=== PATIENT | male | born 1995 | race Caucasian/White ===

== ENCOUNTER 2020-05-09 10:58 | Emergency (ER) | payer OTHER ==
[~2020-05-09] VITALS: Ht 180.3 cm; Wt 66.0 kg
[2020-05-09 11:06] VITALS: BP 126/83
== END 2020-05-09 11:39 | disposition home or self-care (01) ==
LOC: ED 11:15
DX: H60.11 Cellulitis of right external ear (principal); L03.114 Cellulitis of left upper limb; L03.113 Cellulitis of right upper limb; F17.210 Nicotine dependence, cigarettes, uncomplicated
CPT/HCPCS: 99283

== ENCOUNTER 2020-11-24 16:00 | Inpatient (IN) | payer MEDICAID ==
[~2020-11-24] VITALS: Ht 182.9 cm; Wt 71.9 kg
[2020-11-24] MEDS ORDERED: SODIUM CHLORIDE FLUSH 10ML SYR IVF ONE (18:00)
[2020-11-24] MEDS ORDERED: CEFTRIAXONE 1,000 MG in DEXTROSE 5% 50 ML IVPB ONE (18:00)
[2020-11-24] MEDS ORDERED: VANCOMYCIN PER PHARMACY MC ONE (18:00)
[2020-11-24] MEDS ORDERED: SODIUM CHLORIDE 0.9% 1,000ML IVBOLUS ONE (18:00)
[2020-11-24] MEDS ORDERED: VANCOMYCIN 1,700 MG in SODIUM CHLORIDE 0.9% 250 ML IV ONE (18:30)
[2020-11-24 18:41] LABS: MEAN CORPUSCULAR HGB CONC 33.3 g/dL (33.2-36.2); MEAN PLATELET VOLUME 7.1 fL (7.4-10.4); PLATELET COUNT 547 x10^3/uL (130-400); RED BLOOD COUNT 4.29 x10^6/uL (4.38-5.82); RED CELL DISTRIBUTION WIDTH 13.1 % (9.4-14.8)
[2020-11-24 18:54] LABS: ALBUMIN 3.2 g/dL (3.4-5.0); ANION GAP 5 mmol/L (5-15); CALCIUM 9.2 mg/dL (8.5-10.1); CHLORIDE 106 mmol/L (98-107); CREATININE 0.93 mg/dL (0.7-1.3)
--- NOTE | 2020-11-24 19:05 | NUR ---
GAVE PT SNACKS AND DRINKS.
[2020-11-24 19:11] LABS: MD YES
[2020-11-24 19:12] LABS: BAND#(MANUAL) 0.17 x10^3/uL; BANDS%(MANUAL) 1 % (0-7); LYMPH#(MANUAL) 2.41 x10^3/uL (1-3.4); LYMPHS% (MANUAL) 14 % (22-44); MONOS#(MANUAL) 1.03 x10^3/uL (0.3-2.7); MONOS% (MANUAL) 6 % (2-9); REACTIVE LYMPHS # (MANUAL) 0.17 x10^3/uL (0-0); REACTIVE LYMPHS % (MANUAL) 1 % (0-0); SEG#(MANUAL) 13.42 x10^3/uL (1.8-6.8); SEGS% (MANUAL) 78 % (42-75)
[2020-11-24 19:13] LABS: <PLATELET ESTIMATE> INCREASED; <PLT MORPHOLOGY> NORMAL PLT MORPH; <RBC MORPHOLOGY> NORMAL; PMNS WITH VACUOLES 1+; TOXIC GRAN 1+
--- NOTE | 2020-11-24 20:32 | NUR ---
PT REQUESTED MORE SNAKCS AND DRINKS. EATING FOOD CURRENTLY. VSS.
--- NOTE | 2020-11-24 20:33 | NUR ---
LATE ENTRY. PT CAME INTO ED WITH LESIONS AND ABRASIONS COVERED OVER HIS EXTREMITIES, BACK AND NECK. DID NOT KNOW WHY HE HAD THEM AND DENIES DOING DRUGS IV. STATES HE DOES SMOKE HEROIN. WAS WORRIED ABOUT THE ABRASIONS HE HAD.
--- NOTE | 2020-11-24 21:36 | NUR ---
ASKED PT IF HE WANTED TO MOVE INTO A HOSPITAL BED BUT REFUSED AND SAID HE WILL WAIT UNTIL HE GETS MOVED UPSTAIRS.
--- NOTE | 2020-11-24 21:56 | NUR ---
GAVE REPORT TO BRAYDON SCOTT
--- NOTE | 2020-11-24 21:58 | NUR ---
PT STATES HE DOES NOT TAKE ANY MEDS OR HAS ANY ALLERGIES.
[2020-11-24 22:29] VITALS: BP 113/65
[2020-11-24] MEDS ORDERED: LABETALOL 5MG/ML, 20ML IVPush PRN (22:30)
[2020-11-24] MEDS ORDERED: VANCOMYCIN PER PHARMACY MC PRN (22:30)
[2020-11-24] MEDS ORDERED: ACETAMINOPHEN 325 MG TABLET PO PRN (22:30)
[2020-11-24] MEDS ORDERED: LACTATED RINGERS 1,000 ML IV SCH (22:30)
[2020-11-24] MEDS: ENOXAPARIN 40 MG/0.4 ML SQ SCH (22:55)
[2020-11-24] MEDS ORDERED: PHARMACOKINETIC MONITORING MC PRN (23:00)
[2020-11-25 00:03] VITALS: BP 112/68
[2020-11-25] MEDS ORDERED: NICOTINE 14MG/24 HR PATCH.TD24 TD SCH (04:30)
[2020-11-25] MEDS: VANCOMYCIN 1,400 MG in SODIUM CHLORIDE 0.9% 250 ML IV SCH ×3 (04:59→21:15)
[2020-11-25 05:50] LABS: BASOPHILS % (AUTO) 0 % (0-1); EOSINOPHILS % (AUTO) 1 % (1-7); LYMPHOCYTES % (AUTO) 21 % (22-44); MEAN CORPUSCULAR HEMOGLOBIN 30.5 pg (27.5-34.5); MEAN CORPUSCULAR HGB CONC 33.7 g/dL (33.2-36.2); MEAN PLATELET VOLUME 7.1 fL (7.4-10.4); MONOCYTES % (AUTO) 8 % (2-9); NEUTROPHILS % (AUTO) 71 % (42-75); PLATELET COUNT 493 x10^3/uL (130-400); RED CELL DISTRIBUTION WIDTH 13.3 % (9.4-14.8)
[2020-11-25 05:56] LABS: MD NO
[2020-11-25 06:01] LABS: ALBUMIN 2.7 g/dL (3.4-5.0); ANION GAP 4 mmol/L (5-15); CALCIUM 8.8 mg/dL (8.5-10.1); CHLORIDE 107 mmol/L (98-107)
[2020-11-25 06:05] LABS: CREATININE 0.68 mg/dL (0.7-1.3)
[2020-11-25 06:06] LABS: ALANINE AMINOTRANSFERASE 23 U/L (12-78); ALKALINE PHOSPHATASE 118 U/L (45-117); BILIRUBIN,TOTAL 0.3 mg/dL (0.2-1.0)
[2020-11-25 07:13] VITALS: BP 106/68
[2020-11-25] MEDS: SENNA/DOCUSATE TABLET PO SCH (09:46)
[2020-11-25 12:34] VITALS: BP 116/74
[2020-11-25] MEDS: NICOTINE 21 MG/24 HR PATCH.TD24 TD SCH (16:41)
[2020-11-25] MEDS: MUPIROCIN OINT 2%, 22GM TP SCH (18:19)
[2020-11-25 18:32] VITALS: BP 108/68
[2020-11-25] MEDS ORDERED: CEFTRIAXONE 1,000 MG in DEXTROSE 5% 50 ML IVPB SCH (19:00)
[2020-11-25] MEDS: ENOXAPARIN 40 MG/0.4 ML SQ SCH (23:54)
[2020-11-26 00:17] VITALS: BP 117/72
[2020-11-26] MEDS: MUPIROCIN OINT 2%, 22GM TP SCH ×2 (05:05→17:19)
[2020-11-26] MEDS: VANCOMYCIN 1,400 MG in SODIUM CHLORIDE 0.9% 250 ML IV SCH ×3 (05:05→16:25)
[2020-11-26 05:06] LABS: BASOPHILS % (AUTO) 1 % (0-1); EOSINOPHILS % (AUTO) 2 % (1-7); LYMPHOCYTES % (AUTO) 33 % (22-44); MEAN CORPUSCULAR HEMOGLOBIN 30.2 pg (27.5-34.5); MEAN CORPUSCULAR HGB CONC 33.5 g/dL (33.2-36.2); MEAN PLATELET VOLUME 6.9 fL (7.4-10.4); MONOCYTES % (AUTO) 9 % (2-9); NEUTROPHILS % (AUTO) 55 % (42-75); PLATELET COUNT 466 x10^3/uL (130-400); RED BLOOD COUNT 3.98 x10^6/uL (4.38-5.82); RED CELL DISTRIBUTION WIDTH 13.4 % (9.4-14.8)
[2020-11-26 05:19] LABS: ANION GAP 2 mmol/L (5-15); CALCIUM 8.8 mg/dL (8.5-10.1); CHLORIDE 107 mmol/L (98-107); CREATININE 0.74 mg/dL (0.7-1.3)
[2020-11-26 05:41] LABS: MD NO
[2020-11-26 06:43] VITALS: BP 107/67
[2020-11-26] MEDS: SENNA/DOCUSATE TABLET PO SCH (09:14)
[2020-11-26 14:19] VITALS: BP 112/61
[2020-11-26] MEDS: NICOTINE 21 MG/24 HR PATCH.TD24 TD SCH (16:25)
[2020-11-26 18:59] VITALS: BP 112/71
[2020-11-26] MEDS: ENOXAPARIN 40 MG/0.4 ML SQ SCH (23:48)
[2020-11-27 00:10] VITALS: BP 124/74
[2020-11-27] MEDS: VANCOMYCIN 1,400 MG in SODIUM CHLORIDE 0.9% 250 ML IV SCH ×2 (04:21→16:54)
[2020-11-27] MEDS: MUPIROCIN OINT 2%, 22GM TP SCH ×2 (05:02→18:18)
[2020-11-27 05:14] LABS: HCT (SEDRATE) 38.9 % (39.2-51.8)
[2020-11-27 05:24] LABS: CHLORIDE 104 mmol/L (98-107)
[2020-11-27 05:38] LABS: ANION GAP 2 mmol/L (5-15); CALCIUM 8.7 mg/dL (8.5-10.1); CREATININE 0.73 mg/dL (0.7-1.3)
[2020-11-27 07:02] VITALS: BP 102/65
[2020-11-27] MEDS: SENNA/DOCUSATE TABLET PO SCH (09:43)
[2020-11-27 12:51] VITALS: BP 113/73
[2020-11-27] MEDS: NICOTINE 21 MG/24 HR PATCH.TD24 TD SCH (17:01)
[2020-11-27 20:37] VITALS: BP 114/70
[2020-11-28 00:22] VITALS: BP 133/73
[2020-11-28] MEDS: ENOXAPARIN 40 MG/0.4 ML SQ SCH (00:24)
[2020-11-28] MEDS: VANCOMYCIN 1,400 MG in SODIUM CHLORIDE 0.9% 250 ML IV SCH (04:32)
[2020-11-28 05:18] LABS: BASOPHILS % (AUTO) 1 % (0-1); EOSINOPHILS % (AUTO) 1 % (1-7); LYMPHOCYTES % (AUTO) 25 % (22-44); MEAN CORPUSCULAR HEMOGLOBIN 30.4 pg (27.5-34.5); MEAN CORPUSCULAR HGB CONC 33.5 g/dL (33.2-36.2); MEAN PLATELET VOLUME 7.2 fL (7.4-10.4); MONOCYTES % (AUTO) 7 % (2-9); NEUTROPHILS % (AUTO) 66 % (42-75); PLATELET COUNT 521 x10^3/uL (130-400); RED BLOOD COUNT 4.37 x10^6/uL (4.38-5.82); RED CELL DISTRIBUTION WIDTH 13.3 % (9.4-14.8)
[2020-11-28 05:23] LABS: MD NO
[2020-11-28 05:27] LABS: ANION GAP 5 mmol/L (5-15); CALCIUM 8.8 mg/dL (8.5-10.1); CHLORIDE 107 mmol/L (98-107); CREATININE 0.68 mg/dL (0.7-1.3)
[2020-11-28] MEDS: MUPIROCIN OINT 2%, 22GM TP SCH (06:13)
[2020-11-28 07:21] VITALS: BP 123/69
[2020-11-28] MEDS: SENNA/DOCUSATE TABLET PO SCH (08:29)
[2020-11-28] MEDS ORDERED: MUPI1OIN6 TP (09:33)
[2020-11-28] MEDS ORDERED: CEPH-376 PO (09:33)
== END 2020-11-28 11:12 | disposition home or self-care (01) | DRG 872 ==
LOC: ED 16:30 → EDIP 21:46 → 3N 22:24 → DCLOUNGE 11-28 11:05
PROVIDERS: ADMIT Family Medicine; ATTEND Family Medicine
DX: A40.0 Sepsis due to streptococcus, group A (principal); L03.116 Cellulitis of left lower limb; L03.115 Cellulitis of right lower limb; L03.113 Cellulitis of right upper limb; Z66 Do not resuscitate; F12.10 Cannabis abuse, uncomplicated; F15.10 Other stimulant abuse, uncomplicated; F17.210 Nicotine dependence, cigarettes, uncomplicated; L02.92 Furuncle, unspecified; L02.93 Carbuncle, unspecified; L73.9 Follicular disorder, unspecified; Z56.0 Unemployment, unspecified; Z59.0 Homelessness; Z82.49 Family history of ischemic heart disease and other diseases of the circulatory system
CPT/HCPCS: 36415; 71045; 80048; 80053; 80202; 82040; 83605; 85025; 85651; 86140; 87040; 87070; 87147; 87205; 93005; 96365; 96366; 96367; G0378; J0696; J1650; J3370; J7030; J7050; J7120

== ENCOUNTER 2021-01-03 20:09 | Inpatient (IN) | payer MEDICAID ==
[~2021-01-03] VITALS: Ht 188 cm; Wt 70.0 kg
[~2021-01-03 20:09] MED LIST: CEPH-376 PO; MUPI1OIN6 TP
[2021-01-03 20:59] LABS: BASOPHILS % (AUTO) 1 % (0-1); EOSINOPHILS % (AUTO) 1 % (1-7); LYMPHOCYTES % (AUTO) 18 % (22-44); MEAN CORPUSCULAR HEMOGLOBIN 31.3 pg (27.5-34.5); MEAN CORPUSCULAR HGB CONC 33.9 g/dL (33.2-36.2); MEAN PLATELET VOLUME 7.4 fL (7.4-10.4); MONOCYTES % (AUTO) 7 % (2-9); NEUTROPHILS % (AUTO) 74 % (42-75); PLATELET COUNT 432 x10^3/uL (130-400); RED BLOOD COUNT 4.82 x10^6/uL (4.38-5.82); RED CELL DISTRIBUTION WIDTH 14.6 % (9.4-14.8)
[2021-01-03] MEDS ORDERED: DIPH,PERTUSS(ACELL),TET VAC/PF 0.5 ML IM-VACC ONE (21:00)
[2021-01-03 21:03] LABS: ANION GAP 5 mmol/L (5-15); CHLORIDE 106 mmol/L (98-107)
[2021-01-03 21:05] LABS: MD NO
--- NOTE | 2021-01-03 22:12 | NUR ---
NURSES SUPERVISOR: PT. TO ROOM FROM LOBBY AT THIS TIME.
--- NOTE | 2021-01-03 23:04 | NUR ---
PT WALKED TO ROOM FROM LOBBY WITHOUT DIFFICULTY, PT A/O X4 AND WITH UNLABORED BREATHING. PT HAS C/O RIGHT ARM ABSCESS FOR THE LAST 3 DAYS. PT STATED HE WAS HERE LAST WEEK WITH A STAPH INFECTION"
[2021-01-03] MEDS ORDERED: LIDOCAINE 1%, 10ML INFIL ONE (23:30)
[2021-01-03] MEDS ORDERED: CEFTRIAXONE 1,000 MG in DEXTROSE 5% 50 ML IVPB ONE (23:30)
[2021-01-03] MEDS ORDERED: SODIUM CHLORIDE 0.9% 1,000ML IVBOLUS ONE (23:30)
[2021-01-03] MEDS ORDERED: VANCOMYCIN PER PHARMACY MC PRN (23:30)
[2021-01-03] MEDS ORDERED: LIDOCAINE-MPF 1%, 5ML INFIL ONE (23:30)
[2021-01-03] MEDS ORDERED: SODIUM CHLORIDE FLUSH 10ML SYR IVF ONE (23:30)
[2021-01-03] MEDS ORDERED: VANCOMYCIN 1,700 MG in SODIUM CHLORIDE 0.9% 250 ML IV ONE (23:30)
[2021-01-03] MEDS ORDERED: LIDOCAINE-MPF 1%, 5ML ONE (23:31)
[2021-01-04] MEDS ORDERED: MORPHINE SULFATE 4 MG/ML, 1ML IVPush ONE (00:30)
[2021-01-04] MEDS ORDERED: MORPHINE SULFATE 4 MG/ML, 1ML ONE (00:33)
[2021-01-04] MEDS ORDERED: VANCOMYCIN 1,700 MG in SODIUM CHLORIDE 0.9% 250 ML IV ONE (01:30)
[2021-01-04] MEDS ORDERED: ACETAMINOPHEN 325 MG TABLET PO PRN (01:30)
[2021-01-04] MEDS ORDERED: hydrALAzine 20 MG/ML, 1ML IVPush PRN (01:30)
[2021-01-04] MEDS ORDERED: KETOROLAC 30 MG/1 ML IV PRN (01:30)
[2021-01-04] MEDS ORDERED: ONDANSETRON ODT 4 MG PO PRN (01:30)
[2021-01-04] MEDS ORDERED: PROMETHAZINE 25 MG/ML, 1ML IM PRN (01:30)
[2021-01-04] MEDS ORDERED: VANCOMYCIN PER PHARMACY MC PRN (01:30)
[2021-01-04] MEDS ORDERED: POLYETHYLENE GLYCOL 17 GM PACKET PO PRN (01:30)
[2021-01-04] MEDS ORDERED: PHARMACOKINETIC MONITORING MC PRN (01:30)
[2021-01-04] MEDS ORDERED: DOCUSATE 100 MG CAPSULE PO PRN (01:30)
[2021-01-04] MEDS ORDERED: ONDANSETRON 2MG/ML, 2ML IVPush PRN (01:30)
[2021-01-04] MEDS ORDERED: PHARMACOKINETIC CONSULTATION MC ONE (01:30)
[2021-01-04] MEDS ORDERED: BISACODYL 10 MG SUPP PR PRN (01:30)
[2021-01-04 01:43] VITALS: BP 114/74
[2021-01-04 02:40] VITALS: BP 124/78
[2021-01-04] MEDS: SODIUM CHLORIDE 0.9% 1,000 ML IV SCH ×2 (03:17→11:00)
[2021-01-04] MEDS: AMPICILLIN/SULBACTAM 3 GM in SODIUM CHLORIDE 0.9% 100 ML IV SCH ×3 (03:58→14:09)
[2021-01-04 06:09] LABS: BASOPHILS % (AUTO) 1 % (0-1); EOSINOPHILS % (AUTO) 1 % (1-7); LYMPHOCYTES % (AUTO) 24 % (22-44); MEAN CORPUSCULAR HEMOGLOBIN 30.9 pg (27.5-34.5); MEAN CORPUSCULAR HGB CONC 33.3 g/dL (33.2-36.2); MEAN PLATELET VOLUME 7.5 fL (7.4-10.4); MONOCYTES % (AUTO) 7 % (2-9); NEUTROPHILS % (AUTO) 68 % (42-75); PLATELET COUNT 349 x10^3/uL (130-400); RED BLOOD COUNT 4.26 x10^6/uL (4.38-5.82); RED CELL DISTRIBUTION WIDTH 14.2 % (9.4-14.8)
[2021-01-04 06:10] LABS: MD NO
[2021-01-04 06:21] LABS: ALBUMIN 2.7 g/dL (3.4-5.0); ANION GAP 5 mmol/L (5-15); CALCIUM 8.3 mg/dL (8.5-10.1); CHLORIDE 112 mmol/L (98-107)
[2021-01-04 06:33] LABS: ALANINE AMINOTRANSFERASE 25 U/L (12-78); ALKALINE PHOSPHATASE 107 U/L (45-117); BILIRUBIN,TOTAL 0.2 mg/dL (0.2-1.0); CREATININE 0.74 mg/dL (0.7-1.3); TOTAL PROTEIN 5.8 g/dL (6.4-8.2)
[2021-01-04 07:00] VITALS: BP 109/62
[2021-01-04] MEDS ORDERED: VANCOMYCIN 1,200 MG in SODIUM CHLORIDE 0.9% 250 ML IV SCH (08:00)
[2021-01-04] MEDS ORDERED: VANCOMYCIN 1,400 MG in SODIUM CHLORIDE 0.9% 250 ML IV SCH (11:00)
[2021-01-04] MEDS ORDERED: AMOX1TAB64 PO (12:41)
[2021-01-04 12:56] VITALS: BP 116/67
== END 2021-01-04 16:33 | disposition home or self-care (01) | DRG 603 ==
LOC: ED 21:40 → EDIP 01-04 00:31 → 4EST 01-04 01:16 → 3N 01-04 02:39 → DCLOUNGE 01-04 16:29
PROVIDERS: ADMIT Internal Medicine; ATTEND Family Medicine
PROC: 0X9D0ZZ Drainage of Right Lower Arm, Open Approach (ICD-10-PCS; principal; 2021-01-04)
DX: L03.113 Cellulitis of right upper limb (principal); L02.413 Cutaneous abscess of right upper limb; F17.210 Nicotine dependence, cigarettes, uncomplicated; F15.10 Other stimulant abuse, uncomplicated; L02.02 Furuncle of face; L02.93 Carbuncle, unspecified; Z59.0 Homelessness; Z82.49 Family history of ischemic heart disease and other diseases of the circulatory system; Z91.19 Patient's noncompliance with other medical treatment and regimen; F12.90 Cannabis use, unspecified, uncomplicated; F11.90 Opioid use, unspecified, uncomplicated
CPT/HCPCS: 36415; 80048; 80053; 83605; 83735; 84100; 84443; 85025; 87040; 87070; 87077; 87205; 90471; 90715; 93005; 96365; 99285; J0295; J0696; J1885; J3370; J2270; J7030; J7050

== ENCOUNTER 2021-01-08 14:50 | Emergency (ER) | payer MEDICAID ==
[~2021-01-08] VITALS: Ht 182.9 cm; Wt 68.2 kg
[~2021-01-08 14:50] MED LIST changes: +AMOX1TAB64 PO
[2021-01-08 14:53] VITALS: BP 114/70
== END 2021-01-08 15:07 | disposition home or self-care (01) ==
LOC: ED 14:55
DX: Z48.01 Encounter for change or removal of surgical wound dressing (principal)
CPT/HCPCS: 99283

== ENCOUNTER 2021-03-16 07:25 | Emergency (ER) | payer MEDICAID ==
[~2021-03-16] VITALS: Ht 182.9 cm; Wt 68.9 kg
--- NOTE | 2021-03-16 07:45 | NUR ---
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 Pt states "I know you're not supposed to come to the hospital for a bee sting but my grandpa was allergic and I want the stinger out if that's even true that it stays in you." Pt with full body scabs evidence of itching self.
[2021-03-16 08:17] VITALS: BP 128/79
== END 2021-03-16 08:20 | disposition home or self-care (01) ==
LOC: ED 07:51
DX: S30.861A Insect bite (nonvenomous) of abdominal wall, initial encounter (principal); S00.06XA Insect bite (nonvenomous) of scalp, initial encounter; W57.XXXA Bitten or stung by nonvenomous insect and other nonvenomous arthropods, initial encounter; Y93.89 Activity, other specified; Y92.89 Other specified places as the place of occurrence of the external cause; Y99.8 Other external cause status
CPT/HCPCS: 99281

== ENCOUNTER 2021-04-02 13:01 | Emergency (ER) | payer MEDICAID ==
[~2021-04-02] VITALS: Ht 182.9 cm; Wt 69.0 kg
--- NOTE | 2021-04-02 14:02 | NUR ---
ASSUMED CARE OF PT AT THIS TIME.
--- NOTE | 2021-04-02 14:03 | NUR ---
PT UPRIGHT ON GURNEY AWAKE & COMFORTABLE, RESPONDS APPROP TO STAFF, NAD, COMFORT MEASURES PROVIDED, CALL LIGHT WITHIN REACH.
[2021-04-02 14:23] LABS: BASOPHILS % (AUTO) 0 % (0-1); EOSINOPHILS % (AUTO) 0 % (1-7); LYMPHOCYTES % (AUTO) 4 % (22-44); MEAN CORPUSCULAR HEMOGLOBIN 30.5 pg (27.5-34.5); MEAN CORPUSCULAR HGB CONC 34.4 g/dL (33.2-36.2); MEAN PLATELET VOLUME 7.6 fL (7.4-10.4); MONOCYTES % (AUTO) 6 % (2-9); NEUTROPHILS % (AUTO) 90 % (42-75); PLATELET COUNT 275 x10^3/uL (130-400); RED BLOOD COUNT 4.69 x10^6/uL (4.38-5.82); RED CELL DISTRIBUTION WIDTH 13.4 % (9.4-14.8)
[2021-04-02 14:27] LABS: ALANINE AMINOTRANSFERASE 27 U/L (12-78); ALBUMIN 2.9 g/dL (3.4-5.0); ANION GAP 7 mmol/L (5-15); CALCIUM 8.6 mg/dL (8.5-10.1); CHLORIDE 102 mmol/L (98-107); CREATININE 0.94 mg/dL (0.7-1.3)
[2021-04-02 14:30] LABS: ALKALINE PHOSPHATASE 106 U/L (45-117); BILIRUBIN,TOTAL 0.2 mg/dL (0.2-1.0)
[2021-04-02] MEDS ORDERED: LORazepam 1MG TABLET ONE (14:33)
[2021-04-02] MEDS ORDERED: ONDANSETRON ODT 4 MG PO ONE (15:00)
[2021-04-02] MEDS ORDERED: LORazepam 1MG TABLET PO ONE (15:00)
--- NOTE | 2021-04-02 15:02 | NUR ---
PT LAYING ON GURNEY WITH EYES CLOSED, AWAKENS & RESPONDS APPROP TO STAFF, NAD, NO NEEDS AT THIS TIME, CALL LIGHT WITHIN REACH.
--- NOTE | 2021-04-02 15:26 | NUR ---
PT TOLERATED PO CHALLENGE (CRACKERS & JUICE) WO NV- ERP AWARE.
[2021-04-02 16:07] VITALS: BP 106/51
--- NOTE | 2021-04-02 16:07 | NUR ---
PT ABLE TO EASILY DOZE OFF BUT AWAKENS & RESPONDS APPROP TO STAFF, NAD, NO NEEDS AT THIS TIME, CALL LIGHT WITHIN REACH.
== END 2021-04-02 17:29 ==
LOC: ED 15:00
DX: U07.1 COVID-19 (principal); B34.9 Viral infection, unspecified; R11.2 Nausea with vomiting, unspecified; F15.20 Other stimulant dependence, uncomplicated; M79.10 Myalgia, unspecified site; R94.31 Abnormal electrocardiogram [ECG] [EKG]; F17.200 Nicotine dependence, unspecified, uncomplicated
CPT/HCPCS: 36415; 71045; 80053; 85025; 93005; 99285; U0003; U0005